=== PATIENT | female | born 1985 | race Caucasian/White ===

== ENCOUNTER 2020-04-12 06:24 | Inpatient (IN) | payer MEDICAID ==
[2020-04-12] VITALS (21 sets, daily range): BP systolic 114–144; BP diastolic 60–95
[~2020-04-12] VITALS: Ht 165.1 cm; Wt 98.9 kg
--- NOTE | 2020-04-12 06:35 | NUR ---
JUSTA SALDANA presented to unit via AMBULATORY from ED, accompanied by S.O., with c/o INDUCTION. JUSTA SALDANA weighed, gowned, voided, and to bed. EFHM and TOCO applied, VS taken. JUSTA SALDANA oriented to bed controls, call light, TV, heat, and A/C controls.
[2020-04-12] MEDS ORDERED: D5 LR IV SOLUTION 1,000 ML IV SCH (07:13)
[2020-04-12] MEDS ORDERED: MINERAL OIL CONCENTRATE 99.9% 15 ML UDC TOP PRN (07:15)
[2020-04-12 07:44] LABS: BASOPHILS % (AUTO) 0 % (0-10); EOSINOPHILS # (AUTO) 0.2 10^3/uL (0.0-0.3); EOSINOPHILS % (AUTO) 2 % (0-10); HEMATOCRIT 34 % (35-52); HEMOGLOBIN 11.6 G/DL (11.5-16.0); LYMPHOCYTES # (AUTO) 2.3 X 10^3 (1.0-4.0); LYMPHOCYTES % (AUTO) 19 % (12-44); MEAN CORPUSCULAR HEMOGLOBIN 31 PG (25-34); MEAN CORPUSCULAR HGB CONC 34 G/DL (32-36); MEAN CORPUSCULAR VOLUME 90 FL (80-99); MEAN PLATELET VOLUME 11.5 FL (7.4-10.4); MONOCYTES # (AUTO) 0.8 X 10^3 (0.0-1.0); MONOCYTES % (AUTO) 7 % (0-12); NEUTROPHILS # (AUTO) 8.5 X 10^3 (1.8-7.8); NEUTROPHILS % (AUTO) 72 % (42-75); PLATELET COUNT 138 10^3/uL (130-400); WHITE BLOOD COUNT 11.9 10^3/uL (4.3-11.0)
[2020-04-12 07:46] LABS: BILIRUBIN,URINE NEGATIVE (NEGATIVE); CLARITY,URINE CLEAR; COLOR,URINE YELLOW; GLUCOSE, URINE (UA) NEGATIVE (NEGATIVE); KETONES,URINE NEGATIVE (NEGATIVE); LEUKOCYTE ESTERASE ,URINE NEGATIVE (NEGATIVE); NITRITE,URINE NEGATIVE (NEGATIVE); PH,URINE 6.5 (5-9); PROTEIN,URINE NEGATIVE (NEGATIVE)
[2020-04-12 07:56] LABS: WBC,URINE RARE /HPF
[2020-04-12 07:57] LABS: BACTERIA,URINE TRACE /HPF
[2020-04-12] MEDS ORDERED: PREN-37 PO (08:10)
--- NOTE | 2020-04-12 08:45 | History & Physical-OB ---
OB - Chief Complaint & HPI Date/Time Date of Admission: Date of Admission: Apr 12, 2020 at 06:24 Date seen by a Provider: Apr 12, 2020 Time Seen by a Provider: 08:10 Chief Complaint/History OB-Reason for Admission/Chief: Induction of Labor Hx : 5 Hx Para: 3 Expected Date of Delivery: Apr 04, 2020 Gestational Age in Weeks: 41 Gestational Age in Days: 1 Indication for induction: post dates History of Labs O+, Ab neg, Rub Imm, HIV/HepB/RPR NR, normal GTT, GBS neg Allergies and Home Medications Allergies Coded Allergies: No Known Drug Allergies (Unverified , 04/12/20) Home Medications Vit/Iron Fumarate/FA 1 Each Tablet, 1 EACH PO DAILY, (Reported) Patient Home Medication List Home Medication List Reviewed: Yes OB - History Hx of Present Ultrasounds: No ultrasounds Obstetrical Complications: None Medical Complications: None Information Induced Hypertension: No Maternal Gestational Diabetes: No Hemorrhage: No Obstetrical History Hx : 5 Hx Para: 3 Hx # Term Pregnancies: 1 Hx # Pregnancies: 2 Number of Living Children: 3 Delivery History Adverse Rxn to Tranfusion: No Patient Past Medical History None Social History/Family History HIV/AIDS: No Recent Infectious Disease Expo: No Sexually Transmitted Disease: No Alcohol Use: Denies Use Recreational Drug Use: No Immunizations Tetanus Booster (TDap): Less than 5yrs (This ) Rubella: immune RPR/VDRL: Negative GBS Status: Negative HBsAG: Negative OB - Admission Exam Physical Exam Vitals: Vital Signs 04/12/20 07:49 Temp 36.7 Pulse 69 Resp 18 Pulse Ox 98 O2 Delivery Room Air HEENT: NCAT Heart: Rhythm Normal Lungs: Clear Abdomen: Gravid Cervical Dilatation: 3cm Effacement: 100% Station: 0 Membranes: Ruptured Amniotic Fluid: Clear Heart Rate: 140's Accelerations: Accelerations Present Decelerations: No Decelerations Costa Scoring Tool (Modified) Dilation (cm): 3-4cm (2) Effacement (%): 80-100% (3) Descent/Station: -1,0 (2) Cervix Consistency: Soft (2) Cervix Position: Anterior (2) Add 1 point for: Each previous vaginal delivery (1) Subtract 1 point for: Postdate (-1) Costa Score: 12 Labs Laboratory Tests Test 04/12/20 06:45 04/12/20 07:28 Range/Units Urine Color YELLOW Urine Clarity CLEAR Urine pH 6.5 5-9 Urine Specific [place] <=1.005 1.016-1.022 Urine Protein NEGATIVE NEGATIVE Urine Glucose (UA) NEGATIVE NEGATIVE Urine Ketones NEGATIVE NEGATIVE Urine Nitrite NEGATIVE NEGATIVE Urine Bilirubin NEGATIVE NEGATIVE Urine Urobilinogen 0.2 < = 1.0 MG/DL Urine Leukocyte Esterase NEGATIVE NEGATIVE Urine RBC (Auto) NEGATIVE NEGATIVE Urine RBC NONE /HPF Urine WBC RARE /HPF Urine Squamous Epithelial Cells 10-25 H /HPF Urine Crystals NONE /LPF Urine Bacteria TRACE /HPF Urine Casts NONE /LPF Urine Mucus NEGATIVE /LPF Urine Culture Indicated NO White Blood Count 11.9 H 4.3-11.0 10^3/uL Red Blood Count 3.76 L 4.35-5.85 10^6/uL Hemoglobin 11.6 11.5-16.0 G/DL Hematocrit 34 L 35-52 % Mean Corpuscular Volume 90 80-99 FL Mean Corpuscular Hemoglobin 31 25-34 PG Mean Corpuscular Hemoglobin Concent 34 32-36 G/DL Red Cell Distribution Width 13.8 10.0-14.5 % Platelet Count 138 130-400 10^3/uL Mean Platelet Volume 11.5 H 7.4-10.4 FL Neutrophils (%) (Auto) 72 42-75 % Lymphocytes (%) (Auto) 19 12-44 % Monocytes (%) (Auto) 7 0-12 % Eosinophils (%) (Auto) 2 0-10 % Basophils (%) (Auto) 0 0-10 % Neutrophils # (Auto) 8.5 H 1.8-7.8 X 10^3 Lymphocytes # (Auto) 2.3 1.0-4.0 X 10^3 Monocytes # (Auto) 0.8 0.0-1.0 X 10^3 Eosinophils # (Auto) 0.2 0.0-0.3 10^3/uL Basophils # (Auto) 0.0 0.0-0.1 10^3/uL OB - Assessment/Plan/Diagnosis Assessment Assessment: induction of labor Admission Dx Term 41 weeks gestation Admission Status: Inpatient Order (span 2 midnights) Reason for Inpatient Admission: Labor Plan Plan: Induction Induction Method: AROM Other Plan 35 yo @ 41.1 wga here for IOL for post dates Plan - AROM this AM, 0815 clear - Will start pitocin for augmentation - Desires natural labor Copy Copies To 1: ODILIA DUARTE MD, HOLLY R MD Apr 12, 2020 08:45
[2020-04-12] MEDS ORDERED: OXYTOCIN PRE-MIX DRIP 500 ML IV ONE (09:32)
[2020-04-12] MEDS ORDERED: OXYTOCIN PRE-MIX DRIP 500 ML IV SCH ×3 (09:42→12:38)
[2020-04-12] MEDS ORDERED: LIDOCAINE 1% INJ 20 ML 20 ML VIAL ONE (10:42)
--- NOTE | 2020-04-12 12:15 | NUR ---
REFER TO LABOR FLOW SHEET.
--- NOTE | 2020-04-12 12:29 | OB Labor & Delivery Record ---
Vag Delivery Note Vag Delivery Note Date of Delivery: 04/12/20 Preoperative Diagnosis: Kathy Quezada is a (35 /Para 5 / 3,Gestational Age (wks)41.1 here for IOL for post dates Postoperative Diagnosis: Same Surgeon: ODILIA DUARTE Correctional Therapy Teacher: None Anesthesia: None Delivery Type: @1059 Findings: Viable female infant, apgars 8/9, weight 7#, 3165 grams Lacerations: none Intact placenta with 3 vessel cord. No nuchal cord, body cord or shoulder dystocia Pitocin for hemorrhage prophylaxis Estimated Blood Loss: 125 ml Complications: None Condition: Stable Description of Procedure: The patient is a 35 year old female who presented for IOL for post dates. She was admitted and informed consent was obtained. Her labor course was unremarkable. She progressed to complete dilatation and began to push. She was then set up for delivery. The 's head was delivered atraumatically in the JACQUI position. The shoulders and remainder of the 's body were then delivered without difficulty. Upon delivery, the head was held below the level of the perineum and the mouth and nares were bulb suctioned. The cord was doubly clamped and cut by FOB and the was attended to by the pediatric staff on maternal abdomen. An intact placenta with 3-vessel cord delivered via Kim and there was found to be minimal bleeding.~ Vigorous fundal massage was performed and the fundus was found to be firm. IV oxytocin was given. Examination of the vagina and perineum revealed no lacerations that required repair. Following the repair, sponge, instrument and needle counts were correct. Mom and baby were both in stable condition in the labor suite. Vitals - Labs Vital Signs - I&O Vital Signs Date Time Temp Pulse Resp B/P (MAP) Pulse Ox O2 Delivery O2 Flow Rate FiO2 04/12/20 11:21 78 18 127/74 (91) Room Air 04/12/20 11:04 81 18 138/63 (88) Room Air 04/12/20 10:35 74 18 144/95 (111) Room Air 04/12/20 10:20 90 18 137/86 (103) Room Air 04/12/20 09:50 36.4 72 18 122/83 (96) Room Air 04/12/20 07:51 36.7 69 18 119/72 (88) 98 Room Air 04/12/20 07:49 36.7 69 18 98 Room Air Labs Laboratory Tests 04/12/20 06:45: Urine Color YELLOW, Urine Clarity CLEAR, Urine pH 6.5, Urine Specific [place] <=1.005, Urine Protein NEGATIVE, Urine Glucose (UA) NEGATIVE, Urine Ketones NEGATIVE, Urine Nitrite NEGATIVE, Urine Bilirubin NEGATIVE, Urine Urobilinogen 0.2, Urine Leukocyte Esterase NEGATIVE, Urine RBC (Auto) NEGATIVE, Urine RBC NONE, Urine WBC RARE, Urine Squamous Epithelial Cells 10-25H, Urine Crystals NONE, Urine Bacteria TRACE, Urine Casts NONE, Urine Mucus NEGATIVE, Urine Culture Indicated NO 04/12/20 07:28: White Blood Count 11.9H, Red Blood Count 3.76L, Hemoglobin 11.6, Hematocrit 34L, Mean Corpuscular Volume 90, Mean Corpuscular Hemoglobin 31, Mean Corpuscular Hemoglobin Concent 34, Red Cell Distribution Width 13.8, Platelet Count 138, Mean Platelet Volume 11.5H, Neutrophils (%) (Auto) 72, Lymphocytes (%) (Auto) 19, Monocytes (%) (Auto) 7, Eosinophils (%) (Auto) 2, Basophils (%) (Auto) 0, Neutrophils # (Auto) 8.5H, Lymphocytes # (Auto) 2.3, Monocytes # (Auto) 0.8, Eosinophils # (Auto) 0.2, Basophils # (Auto) 0.0 ODILIA DUARTE MD Apr 12, 2020 12:29
[2020-04-12] MEDS ORDERED: TETANUS,DIPTH,PERTUSS P/F (BOOSTRIX) 0.5 ML VIAL IM ONE (12:45)
[2020-04-12] MEDS ORDERED: BENZOCAINE/MENTHOL (DERMOPLAST) 60 ML CAN TP PRN (12:45)
[2020-04-12] MEDS ORDERED: MEASLES,MUMPS,RUBELLA 1 EA INJ SQ ONE (12:45)
[2020-04-12] MEDS ORDERED: WITCH HAZEL(TUCKS) 40 EA JAR TOP PRN (12:45)
[2020-04-12] MEDS ORDERED: IBUPROFEN 600 MG (MOTRIN) TAB PO ONE (12:48)
[2020-04-12] MEDS: IBUPROFEN 600 MG (MOTRIN) TAB PO SCH ×2 (12:57→18:50)
[2020-04-12] MEDS ORDERED: CATHETER FLUSH 10 ML SYR IV SCH ×2 (14:00)
--- NOTE | 2020-04-12 16:50 | NUR ---
PT TRANSFERRED FROM -318 TO -309 VIA AMBULATORY IN STABLE CONDITION ACC BY THIS RN, S/O AND . PT TO BED. VS OBTAINED. SHOWER SET UP PER REQUEST. IV SITE COVERED. NO FURTHER NEEDS VOICED AT THIS TIME. CALL LIGHT WITHIN REACH.
[2020-04-12] MEDS: ACETAMINOPHEN 500 MG TAB (TYLENOL) PO SCH (17:05)
[2020-04-12] MEDS: DOCUSATE SODIUM 100 MG (COLACE) CAP PO SCH (20:15)
[2020-04-13] MEDS: ACETAMINOPHEN 500 MG TAB (TYLENOL) PO SCH ×2 (00:10→06:38)
[2020-04-13 00:16] VITALS: BP 120/77
[2020-04-13] MEDS: IBUPROFEN 600 MG (MOTRIN) TAB PO SCH ×2 (00:16→06:38)
[2020-04-13 04:40] VITALS: BP 121/78
[2020-04-13 06:52] LABS: BASOPHILS % (AUTO) 0 % (0-10); EOSINOPHILS # (AUTO) 0.2 10^3/uL (0.0-0.3); EOSINOPHILS % (AUTO) 2 % (0-10); HEMATOCRIT 33 % (35-52); HEMOGLOBIN 11.1 G/DL (11.5-16.0); LYMPHOCYTES # (AUTO) 2.9 X 10^3 (1.0-4.0); LYMPHOCYTES % (AUTO) 23 % (12-44); MEAN CORPUSCULAR HEMOGLOBIN 30 PG (25-34); MEAN CORPUSCULAR HGB CONC 33 G/DL (32-36); MEAN CORPUSCULAR VOLUME 91 FL (80-99); MEAN PLATELET VOLUME 11.9 FL (7.4-10.4); MONOCYTES # (AUTO) 0.7 X 10^3 (0.0-1.0); MONOCYTES % (AUTO) 6 % (0-12); NEUTROPHILS # (AUTO) 8.7 X 10^3 (1.8-7.8); NEUTROPHILS % (AUTO) 69 % (42-75); PLATELET COUNT 128 10^3/uL (130-400); WHITE BLOOD COUNT 12.5 10^3/uL (4.3-11.0)
--- NOTE | 2020-04-13 07:00 | NUR ---
REPORT FROM JUDY CLINTON.
--- NOTE | 2020-04-13 07:05 | NUR ---
DR JACOBS HERE NEW ORDERS RECEIVED.
--- NOTE | 2020-04-13 07:05 | Discharge Summary ---
Diagnosis/Chief Complaint Date of Admission Apr 12, 2020 at 06:24 Date of Discharge April 13, 2020 Admission Diagnosis Admission Diagnosis 1. Intrauterine at 41 weeks gestation Discharge Diagnosis 1. Intrauterine at 41 weeks gestation Chief Complaint/HPI Chief Complaint/HPI 35-year-old 5 now L4 who was admitted for labor and the morning of April 12, 2020. Patient was noted to be at 41 weeks gestation. She was followed by [facility] Dr. Maldonado and was essentially without complication. Discharge Summary-OBS Procedures 1. Spontaneous vaginal deliveryperformed by Dr. Maldonado Discharge Physical Examination Allergies: Coded Allergies: No Known Drug Allergies (Unverified , 04/12/20) Vitals & I&Os Intake and Output 04/13/20 00:00 Intake Total 1500 ml Balance 1500 ml Vital Sign - Last 12Hours Date Time Temp Pulse Resp B/P (MAP) Pulse Ox O2 Delivery O2 Flow Rate FiO2 04/13/20 04:40 36.4 63 18 121/78 (92) 98 Room Air General Appearance: No Acute Distress Respiratory: Clear to Auscultation Cardiovascular: Regular Rate Abdominal: Soft (with uterus firm) Hospital Course Was the Problem List Reviewed?: Yes patient was admitted during the morning of April 12, 2020. She underwent artificial rupture of membranes. She continued to contract. She did not receive epidural. She progressed fairly rapidly in the morning of April 12 and ultimately delivered at 1059 a term viable female. Following delivery patient underwent routine care orders. She was noted to have no complications during the next 24 hours. Her hemoglobin was noted to be 11.1 the day after delivery compared to 11.6 on admission. She was without complaint. They had gave patient ibuprofen for cramping. She was tolerating regular diet and ambulatory without complaints. She was felt ready for dismissal in the afternoon of April 13, 2020. Labs Laboratory Tests 04/12/20 07:28: White Blood Count 11.9H, Red Blood Count 3.76L, Hemoglobin 11.6, Hematocrit 34L, Mean Corpuscular Volume 90, Mean Corpuscular Hemoglobin 31, Mean Corpuscular Hemoglobin Concent 34, Red Cell Distribution Width 13.8, Platelet Count 138, Mean Platelet Volume 11.5H, Neutrophils (%) (Auto) 72, Lymphocytes (%) (Auto) 19, Monocytes (%) (Auto) 7, Eosinophils (%) (Auto) 2, Basophils (%) (Auto) 0, Neutrophils # (Auto) 8.5H, Lymphocytes # (Auto) 2.3, Monocytes # (Auto) 0.8, Eosinophils # (Auto) 0.2, Basophils # (Auto) 0.0 04/13/20 05:55: White Blood Count 12.5H, Red Blood Count 3.65L, Hemoglobin 11.1L, Hematocrit 33L , Mean Corpuscular Volume 91, Mean Corpuscular Hemoglobin 30, Mean Corpuscular Hemoglobin Concent 33, Red Cell Distribution Width 13.7, Platelet Count 128L, Mean Platelet Volume 11.9H, Neutrophils (%) (Auto) 69, Lymphocytes (%) (Auto) 23, Monocytes (%) (Auto) 6, Eosinophils (%) (Auto) 2, Basophils (%) (Auto) 0, Neutrophils # (Auto) 8.7H, Lymphocytes # (Auto) 2.9, Monocytes # (Auto) 0.7, Eosinophils # (Auto) 0.2, Basophils # (Auto) 0.0 Discharge Instructions to patient/family Please see electronic discharge instructions given to patient. Discharge Medications Reviewed and agree with Discharge Medication list on patient's Discharge Instruction sheet Clinical Quality Measures DVT/VTE Risk/Contraindication: Risk Factor Score Per Nursin RFS Level Per Nursing on Admit: 2=Moderate REBECCA JACOBS MD Apr 13, 2020 07:05
--- NOTE | 2020-04-13 07:06 | Discharge Inst-Women's Service ---
Discharge Inst-Women's Serv Depart Medication/Instructions New, Converted or Re-Newed RX: Other Instructions May take ibuprofen [id number]. May take 200 mg ibuprofen 3 tablets every 6 hours as needed for uterine cramping. Problems Reviewed?: Yes Consults/Follow Up Additional Follow Up: Yes (Dr. Maldonado in 6 weeks) Activity Activity: Activity as Tolerated Driving Instructions: You May Drive Nothing Inside Vagina: No [place] (for 6 weeks) Diet Discharge Diet: Regular Diet Return to The Hospital For: as below Symptoms to Report to : Swelling Increased, Bleeding Excessive, Fever Over 101 Degrees F, Vaginal Discharge Foul For Any Problems or Questions: Contact Your Physician REBECCA JACOBS MD Apr 13, 2020 07:06
[2020-04-13 08:50] VITALS: BP 124/67
[2020-04-13] MEDS: DOCUSATE SODIUM 100 MG (COLACE) CAP PO SCH (08:50)
--- NOTE | 2020-04-13 08:50 | NUR ---
INITIAL ASSESSMENT COMPLETED, VSS, NO DISTRESS NOTED, SEE INTERVENTIONS FOR DETAILED ASSESSMENTS, PLAN OF CARE REVIEWED WITH PT/SO, NO QUESTIONS NOTED, WILL MONITOR CLOSELY.
--- NOTE | 2020-04-13 13:08 | NUR ---
MOTHER DENIES ANY C/O OR QUESTIONS, INFANT REMAINS AT BEDSIDE, WILL MONITOR CLOSELY.
--- NOTE | 2020-04-13 14:20 | NUR ---
JUSTA SALDANA demonstrates understanding of discharge instructions and accurately returns instructions upon questioning. Copy of Post-Discharge Instructions given to PT. JUSTA SALDANA is able to manage continuing needs after discharge. Patients belongings returned to . Patient discharged from 3309-1 on 04/13/20 at 1420. JUSTA SALDANA left floor via , accompanied by .
== END 2020-04-13 14:20 | disposition home or self-care (01) | DRG 807 ==
LOC: LDRP 06:24
PROVIDERS: ADMIT Family Medicine; ATTEND Family Medicine
PROC: 10907ZC Drainage of Amniotic Fluid, Therapeutic from Products of Conception, Via Natural or Artificial Opening (ICD-10-PCS; principal; 2020-04-12)
PROC: 10E0XZZ Delivery of Products of Conception, External Approach (ICD-10-PCS; 2020-04-12)
DX: O48.0 Post-term pregnancy (principal); Z37.0 Single live birth; Z3A.41 41 weeks gestation of pregnancy
CPT/HCPCS: 36415; 81000; 85025; 86850; 86900; 86901